=== PATIENT | female | born 1990 | race Caucasian/White ===

== ENCOUNTER 2017-12-27 09:44 | Day surgery (SDC) | payer OTHER ==
[2017-12-27] MEDS ORDERED: ceFAZolin 2 GM/DEXTROSE 100 ML IV ONE (09:57)
[2017-12-27] MEDS ORDERED: GABAPENTIN 300 MG CAP PO ONE (09:57)
[2017-12-27] MEDS ORDERED: ACETAMINOPHEN 500 MG TAB PO ONE (09:57)
[2017-12-27] MEDS ORDERED: PHENAZOPYRIDINE HCL 200 MG TAB PO ONE (09:57)
[2017-12-27] MEDS ORDERED: LR 1,000 ML IV ONE (09:59)
[2017-12-27] MEDS ORDERED: LIDOCAINE 1% 2 ML INJ ID PRN (09:59)
[2017-12-27] MEDS ORDERED: BUPIVACAINE/EPI 0.5% 30 ML SDV ONE (11:06)
--- NOTE | 2017-12-27 11:32 | PDHPUP ---
History & Physical Update H&P update statement: This history and physical update is based on an assessment of the patient which was completed after admission or registration (within 24 hours), but prior to the surgery/procedure. H&P update: H&P reviewed & patient examined, no change in patient's condition since H&P completed
[2017-12-27] MEDS ORDERED: MIDAZOLAM 2 MG/2 ML VIAL ONE (11:55)
[2017-12-27] MEDS ORDERED: LIDOCAINE 2% 100 MG/5 ML SYR ONE (12:21)
[2017-12-27] MEDS ORDERED: fentaNYL 250 MCG/5 ML INJ ONE (12:22)
[2017-12-27] MEDS ORDERED: PROPOFOL 200 MG/20 ML VIAL ONE ×2 (12:22→13:42)
--- NOTE | 2017-12-27 12:53 | PDANEPAE ---
ANE History of Present Illness endometriosis, here for endometrial excision with robotic assist ANE Past Medical History - Cardiovascular History Hx Hypertension: No Hx Arrhythmias: No Hx Chest Pain: No Hx Coronary Artery / Peripheral Vascular Disease: No Hx CHF / Valvular Disease: No Hx Palpitations: No - Pulmonary History Hx COPD: No Hx Asthma/Reactive Airway Disease: No Hx Recent Upper Respiratory Infection: Yes Hx Oxygen in Use at Home: No Hx Sleep Apnea: No Sleep Apnea Screening Result - Last Documented: Negative Pulmonary History Comment: had URI mid November 2017- treated at [facility] w /prednisone & ABX - no further symptoms - Neurologic History Hx Cerebrovascular Accident: No Hx Seizures: Yes Hx Dementia: No Neurologic History Comment: had possible seizure about 4 years ago but has had nothing since and no further workup - Endocrine History Hx Diabetes: No - Renal History Hx Renal Disorders: No - Liver History Hx Hepatic Disorders: No - Neurological & Psychiatric Hx Hx Neurological and Psychiatric Disorders: Yes Neurological / Psychiatric History Comment: bipolar disorder. anxiety - Cancer History Hx Cancer: No - Congenital Disorder History Hx Congenital Disorders: No - GI History Hx Gastrointestinal Disorders: No Gastrointestinal History Comment: lactose intolerant - Other Health History Other Health History: endometriosis - Chronic Pain History Chronic Pain: Yes (abdomen) - Surgical History Prior Surgeries: wisdom teeth. endoscopies ANE Review of Systems Review of Systems: - Exercise capacity METS (RN): 6 METS ANE Patient History - Allergies Allergies/Adverse Reactions: No Known Allergies Allergy (Verified 12/21/17 10:09) - Home Medications Home Medications: Adult One Daily Multivit Tab 12/21/17 [Last Taken 12/20/17] Apri 28 Day Tablet 12/21/17 [Last Taken 12/26/17] Melatonin 12/21/17 [Last Taken 12/20/17] Zoloft 25mg (*) 12/21/17 [Last Taken 12/26/17] - NPO status NPO Since - Liquids (Date): 12/26/17 NPO Since - Liquids (Time): 21:00 NPO Since - Solids (Date): 12/26/17 NPO Since - Solids (Time): 21:00 - Smoking Hx Smoking Status: Never smoked - Family Anes Hx Family Hx Anesthesia Complications: none ANE Labs/Vital Signs - Vital Signs Blood Pressure: 153/95 Heart Rate: 115 Respiratory Rate: 14 O2 Sat (%): 100 Height: 172.72 cm Weight: 63.503 kg ANE Physical Exam - Airway Neck exam: FROM Mallampati Score: Class 1 Mouth exam: normal dental/mouth exam - Pulmonary Pulmonary: no respiratory distress - Cardiovascular Cardiovascular: regular rate and rhythym - ASA Status ASA Status: II ANE Anesthesia Plan Anesthesia Plan: general endotracheal anesthesia
[2017-12-27] MEDS ORDERED: NALOXONE HCL 0.4 MG/ML INJ IVP PRN (12:54)
[2017-12-27] MEDS ORDERED: HYDROmorphONE/DILAUDID 2 MG/ML INJ IVP PRN (12:54)
[2017-12-27] MEDS ORDERED: DIAZEPAM 5 MG/ML 1 ML SYR IVP PRN (12:54)
[2017-12-27] MEDS ORDERED: LR 500 ML IV PRN (12:54)
[2017-12-27] MEDS ORDERED: oxyCODONE IR 5 MG TAB PO PRN (12:54)
[2017-12-27] MEDS ORDERED: fentaNYL 100 MCG/2 ML INJ IVP PRN (12:54)
[2017-12-27] MEDS ORDERED: MIDAZOLAM 2 MG/2 ML VIAL IVP ONE (12:54)
[2017-12-27] MEDS ORDERED: PROMETHAZINE HCL 25 MG/ML INJ IVP PRN (12:54)
[2017-12-27] MEDS ORDERED: RANITIDINE 50 MG/2 ML VIAL ONE (13:42)
[2017-12-27] MEDS ORDERED: ONDANSETRON 4 MG/2 ML VIAL ONE (13:42)
[2017-12-27] MEDS ORDERED: DEXAMETHASONE 4 MG/ML VIAL ONE (13:42)
[2017-12-27] MEDS ORDERED: SUGAMMADEX SODIUM 200 MG/2 ML VIAL IVP ONE (13:42)
[2017-12-27] MEDS ORDERED: KETOROLAC 30 MG/1 ML SDV ONE (13:42)
--- NOTE | 2017-12-27 13:55 | POSTOPPROG ---
Post Op Note Date of Operation: 12/27/17 Surgeon: Kennedy Shipman Unit Assistant: Ksenia Key Anesthesia: GET(General Endotracheal) Pre-op Diagnosis: Endometriosis Post-op Diagnosis: Same Procedure: Robotic excision of endo, bilat ureterolysis and ovarian pexy Findings: Endo Inf/Abcess present in the surg proc area at time of surgery?: No EBL: Minimal Complications: None
[2017-12-27] MEDS ORDERED: MEPERIDINE 25 MG/0.5 ML AMP ONE (14:12)
[2017-12-27] MEDS: MEPERIDINE 25 MG/0.5 ML AMP IVP PRN ×2 (14:13→14:19)
[2017-12-27] MEDS ORDERED: PROMETHAZINE HCL 25 MG/ML INJ ONE (14:31)
[2017-12-27 16:37] VITALS: BP 123/70
--- NOTE | 2017-12-27 16:59 | GOP ---
DATE OF OPERATION: 12/27/2017 SURGEON: Kennedy Shipman MD FILLER IN: Ksenia Key CFA ANESTHESIA: General. PREOPERATIVE DIAGNOSIS: 1. Dysmenorrhea. 2. Endometriosis. 3. Cyclic pelvic pain. POSTOPERATIVE DIAGNOSIS: 1. Dysmenorrhea. 2. Endometriosis. 3. Cyclic pelvic pain. PROCEDURE PERFORMED: 1. Robotic excision of endometriosis in the anterior and posterior cul-de-sac and bilateral ovarian fossae. 2. Bilateral ureterolysis. 3. Bilateral ovariopexy. FINDINGS: SPECIMENS: Pelvic peritoneum with endometriosis. ESTIMATED BLOOD LOSS: Scant. DESCRIPTION OF PROCEDURE: The patient was taken to the operating room where she was identified. General anesthesia was administered and found to be adequate. She was placed in the lithotomy position and prepared and draped in normal sterile fashion. A Hulka tenaculum was placed in the uterus for manipulation. A Downs catheter was then placed. A 1 cm infraumbilical incision was made with a scalpel. The Veress needle with CO2 gas flowing was advanced into the peritoneal cavity. The abdomen was insufflated with carbon dioxide gas. The 12 mm trocar, followed by the laparoscope were then inserted. The upper abdomen was unremarkable. There was no evidence of endometriosis on either diaphragm, liver, stomach, gallbladder, or upper abdominal bowel. She did have some adhesions of the ascending colon to the right pelvic sidewall. These were taken down sharply. She had 2 small spots of endometriosis on the lateral abdominal wall, which were treated. Two right and one left lateral ports were place under direct visualization. She was then placed in Trendelenburg position and the da Cecilia robot docked on the left side. The instruments were then brought into the abdominal cavity under direct visualization. She was found to have endometriosis throughout the posterior cul-de-sac. Bilateral pelvic sidewalls overlying the ureters, as well as in the anterior cul -de-sac. These areas were completely excised. The posterior cul-de-sac peritoneum from the distal rectum up to the cervical serosa and laterally out to the uterosacral ligament was completely excised. A bilateral ovariopexy was performed due to cyclic pelvic pain. This accomplished by attaching each ovary to the ipsilateral round ligament by the internal inguinal ring with 3-0 Vicryl Rapide suture. The anterior cul-de-sac peritoneum was then completely excised. A bilateral ureterolysis was required. The peritoneum at the pelvic brims was incised. The ureter was gently dissected free and lateralized off the overlying peritoneuman and endometriosis from the pelvic brim all the way down to the uterine arteries. Once this was accomplished, the entire ovarian fossa peritoneum and overlying endometriosis was completely excised bilaterally. The pelvis was then irrigated with sterile saline and hemostasis was present. The fascia was closed with 0 Vicryl, the skin with 4-0 Monocryl. Anesthesia was reversed. Patient was taken to PACU, awake in stable condition. COMPLICATIONS: None. DISPOSITION: Patient is stable to PACU. /[id number]/MODL MTDD
== END 2017-12-27 17:54 | disposition home or self-care (01) ==
LOC: FSGY 09:44
PROVIDERS: ATTEND Obstetrics & Gynecology
PROC: 0TN74ZZ Release Left Ureter, Percutaneous Endoscopic Approach (ICD-10-PCS; principal; 2017-12-27 12:15)
PROC: 0TN64ZZ Release Right Ureter, Percutaneous Endoscopic Approach (ICD-10-PCS; principal; 2017-12-27 12:15)
PROC: 8E0W4CZ Robotic Assisted Procedure of Trunk Region, Percutaneous Endoscopic Approach (ICD-10-PCS; principal; 2017-12-27 12:15)
PROC: 0US24ZZ Reposition Bilateral Ovaries, Percutaneous Endoscopic Approach (ICD-10-PCS; principal; 2017-12-27 12:15)
PROC: 0UBF4ZZ Excision of Cul-de-sac, Percutaneous Endoscopic Approach (ICD-10-PCS; principal; 2017-12-27 12:15)
DX: N80.3 Endometriosis of pelvic peritoneum (principal); N80.1 Endometriosis of ovary; E28.2 Polycystic ovarian syndrome; F99 Mental disorder, not otherwise specified; F32.9 Major depressive disorder, single episode, unspecified; G43.909 Migraine, unspecified, not intractable, without status migrainosus
CPT/HCPCS: J0690; J1100; J1885; J2001; J2175; J2250; J2405; J2550; J2704; J2780; J3010